=== PATIENT | male | born 1995 ===

== ENCOUNTER 2020-10-29 03:15 | Emergency (ER) | payer OTHER ==
--- NOTE | 2020-10-29 06:25 | ER ---
Nurse's Notes [facility] Name: Andrew Darby Age: 25 yrs Sex: Male : 1995 Arrival Date: 10/29/2020 Time: 03:16 Bed Waiting Private MD: Diagnosis: Presentation: 10/29 03:57 Chief complaint: Patient states: he drank too much tonight and he feels really bad. bb Coronavirus screen: At this time, the client does not indicate any symptoms associated with coronavirus-19. Ebola Screen: No symptoms or risks identified at this time. Initial Sepsis Screen: Does the patient meet any 2 criteria? No. Patient's initial sepsis screen is negative. Does the patient have a suspected source of infection? No. Patient's initial sepsis screen is negative. Risk Assessment: Do you want to hurt yourself or someone else? Patient reports no desire to harm self or others. Onset of symptoms was October 29, 2020. 03:57 Method Of Arrival: Ambulatory 03:57 Acuity: RENETTA 5 bb 06:24 Note notified by triage pt decided not to stay and left the ED with family. bb Triage Assessment: 04:02 General: Appears in no apparent distress. ill, Behavior is cooperative, listless. Pain: bb Denies pain. Neuro: Level of Consciousness is awake, listless, Oriented to person, place, situation. Cardiovascular: Capillary refill < 3 seconds Patient's skin is warm and dry. Respiratory: Respiratory effort is even, unlabored. GI: No deficits noted. Derm: Skin is pink, warm \T\ dry. Musculoskeletal: Circulation, motion, and sensation intact. Historical: - Allergies: 04:01 PENICILLINS; bb - Home Meds: 04:01 Unable to obtain [Active]; bb - PMHx: 04:01 Asthma; bb - PSHx: 04:01 None; bb - Immunization history:: Adult Immunizations up to date. - Social history:: Smoking status: Patient reports the use of cigarette tobacco products, Patient uses alcohol, patient/guardian reports recent binge of alcohol consumption. Vital Signs: 03:57 BP 125 / 86; Pulse 68; Resp 16 S; Temp 97.9(O); Pulse Ox 99% on R/A; Weight 70 kg (R); bb ED Course: 03:16 Patient arrived in ED. bp1 04:01 Triage completed. bb 04:01 Arm band placed on. bb Administered Medications: No medications were administered Outcome: 06:25 Patient left the ED. bb Signatures: Radhika Sloan RN RN bb Maryse Goodman bp1
[2020-10-29 06:30] VITALS: BP 125/86; TEMP 97.9; O2SAT 99
== END 2020-10-29 06:25 | disposition left against medical advice (07) ==
LOC: ER 03:15
DX: Z53.21 Procedure and treatment not carried out due to patient leaving prior to being seen by health care provider (principal)
CPT/HCPCS: 99281